=== PATIENT | female | born 1945 | race Caucasian/White ===

== ENCOUNTER 2025-02-21 13:07 | Emergency (ER) | payer MEDICARE, SELFPAY ==
--- NOTE | ~2025-02-21 | CT_ITS ---
CLINICAL HISTORY: LLQ pain, incontinent of stool constipation --- Additional Notes or Special Instructions: PT NEEDS RESTROOM 1ST@1614 CT abdomen and pelvis with contrast Comparison: None provided Findings: No consolidation or pleural effusion. Minimal lateral left basilar subsegmental atelectasis versus scarring. The gallbladder is distended. No definite gallstones. No biliary ductal dilatation. The liver, spleen and pancreas are unremarkable. Unremarkable right adrenal. Thickening of left adrenal. Right kidneys unremarkable. There is a 2.4 cm cyst of the upper pole of the left kidney and an additional 1 cm hypodense round lesion in the upper pole which is too small to be fully characterized. There is decreased enhancement in the left kidney compared with the right with mild hydronephrosis and hydroureter with a 3-4 mm stone at the left ureterovesical junction. There is a 6 mm nonobstructing stone in the lower pole of the left kidney. No right ureteral stone and no right hydronephrosis or hydroureter. No bowel obstruction, pneumoperitoneum, or pneumatosis. Sigmoid colon diverticulosis. Moderate stool in the ascending and transverse colon. Prominent rectal stool with rectal wall thickening and perirectal fat stranding may represent rectal fecal impaction and stercoral proctitis. No free fluid. No loculated fluid collection. Urinary bladder within normal limits. Uterus is absent. Appendix not visualized with no pericecal inflammatory changes. Atherosclerotic vascular disease with no aneurysm of the abdominal aorta. No acute fracture. Diffuse demineralization with multilevel degenerative changes in the spine. Degenerative changes right hip. Previous left hip arthroplasty. IMPRESSION: 1. Prominent rectal stool with rectal distention, rectal wall thickening and perirectal fat stranding suggestive of fecal impaction/constipation and stercoral proctitis. Correlate clinically. 2. 3-4 mm stone at the left ureterovesical junction with mild left hydronephrosis and hydroureter. 3. Additional nonacute findings as described. This document has been electronically signed by: Rachel Diana MD on 02/21/2025 18:12:26
--- NOTE | 2025-02-21 13:38 | ED.ABDPAIN ---
HPI - Abdominal Pain General Chief Complaint: Abdominal Pain Stated Complaint: abd pain Time Seen by Provider: 02/21/25 14:25 Source: patient, RN notes reviewed and old records reviewed Mode of arrival: ambulatory Limitations: no limitations History of Present Illness ED Provider: Frances HPI narrative: Patient is a 79-year-old female with history of hysterectomy presenting to the emergency department with complaint of left lower quadrant abdominal pain which he describes as intermittently cramping. States that on Tuesday she developed nausea and vomiting, felt as though she was going to have diarrhea but did not. Reports that these symptoms continued through Tuesday. On Tuesday she developed the abdominal pain as well as constipation. Reports last normal bowel movement was on the prior to onset of her nausea and vomiting. States that on Tuesday she did take docusate, Dulcolax, and MiraLax. She then reports some fecal incontinence. Denies any fevers. Denies any hematochezia or melena. Reports that her emesis was nonbloody, nonbilious. She reports feeling as though she has a fecal impaction in her rectum, also questioning a rectal prolapse. MD elicited complaint: abdominal pain Related Data Previous Rx's ?Medication ?Instructions ?Recorded nitrofurantoin 100 mg PO Q12H 5 days #10 caps 02/21/25 monohydrate/macrocrystals 100 mg capsule (Macrobid) ondansetron 4 mg disintegrating 4 mg PO Q8H PRN nausea and 02/21/25 tablet vomiting #14 tabs tamsulosin 0.4 mg capsule 0.4 mg PO DAILY 14 days #14 caps 02/21/25 Allergies Allergy/AdvReac Type Severity Reaction Status Date / Time gentamicin Allergy Diarrhea Verified 02/21/25 13:43 meperidine (From Demerol) Allergy Vomiting Verified 02/21/25 13:43 metoclopramide (From Reglan) Allergy Unknown Verified 02/21/25 13:43 metronidazole (From Flagyl) Allergy Diarrhea Verified 02/21/25 13:43 Milk Containing Products Allergy Vomiting Verified 02/21/25 13:43 (Dairy) Review of Systems Review of Systems As per HPI Yes all other systems are reviewed and are negative Constitutional: Reports as per HPI PMFSH Social History Social History Smoked in Last 30 Days: No Use of substances other than those prescribed or required for medical reasons: No Advance Directives: Yes Advance Directives Information Provided: No Advance Directives on File: No Physical Exam ED Vital Signs: Vital Signs - 24 hr 02/21/25 13:41 02/21/25 15:32 02/21/25 15:39 Temperature 98.5 F 98.7 F Pulse Rate 94 91 Respiratory Rate 18 18 18 Blood Pressure 160/70 H 160/67 H Pulse Oximetry 95 99 Oxygen Delivery Method Room Air Room Air 02/21/25 17:43 02/21/25 20:03 Temperature 99 F Pulse Rate 85 88 Respiratory Rate 16 16 Blood Pressure 145/38 H 165/52 H Pulse Oximetry 95 96 Oxygen Delivery Method Room Air Room Air BMI result Body Mass Index 31.6 Vital signs have been reviewed and appear to be correct. Blood pressure normal. Heart rate normal. Respiratory rate normal. Temperature normal. Oxygen saturation normal. Const General: cooperative, healthy appearing and no acute distress Orientation/consciousness: oriented to person, oriented to place, oriented to time and patient oriented x3 Limitations: no limitations HENMT Head: Yes normocephalic and Yes atraumatic Ears: external ears normal General nose exam: Normal external nose present Face and sinus: Yes face symmetric Mouth: oropharynx normal and moist mucous membranes Throat: Yes uvula midline Eyes Pupils: Equal, round and reactive pupils present Neck Neck: Yes normal visual inspection and Yes supple Resp Effort & Inspection: normal respiratory effort and able to speak in complete sentences Auscultation: clear to auscultation bilaterally Cardio Rate: regular rate Rhythm: regular rhythm Heart sounds: S1 normal heart sound present and S2 normal heart sound present GI Other: rectal exam chaperoned by Axel RN Palpation (GI): Soft to palpation, Tenderness to palpation present (GI) in the LLQ, no guarding and No Rebound tenderness present Auscultation: normoactive bowel sounds Rectal Exam - Female: visual inspection normal, No External hemorrhoid(s) present and No Rectal prolapse General: Yes no CVA tenderness Back/Spine/Pelvis Back: no CVA tenderness Skin General skin exam: elasticity normal and turgor normal Neuro General: oriented to person, oriented to place, oriented to time, patient oriented x3, moves all extremities, no focal motor deficits and CN's II-XI intact bilaterally Cranial nerves: Yes Equal, round and reactive pupils present Cognition (Neuro): normal cognition Extrem General: Yes full ROM, Yes no pedal edema and Yes no calf tenderness Psych Mental Status: mental status grossly normal Affect: normal affect Thought process: Normal thought process present Course Course Course Narrative: This is an RME: Additional HPI, ROS, PE not included below will be deferred to primary provider. RME assessment and note performed by: Chantel Garcia PA-C This is a 18-efst-kyz-female, with a hx of HTN, CAD, HLD, GERD, arthritis, forestier's disease (DISH), who presents to the ER with a complaint of abdominal pain since last night.Reports that she had a stomach virus last week and then has felt as though. STill passing gas. No BM in over 1 week. Pt appears uncomfortable, advised charge nurse to bring pt back sooner rather than later. Plan: Labs, KUB xray, further ER eval needed 4:54 PM 02/21/2025 (Angeles Santana NP): Patient signed out to me from previous provider. Pending CT abdomen/pelvis to r/o diverticulitis. 6:18 PM: Her CT scan reveals prominent rectal stool rectal distention, rectal wall thickening and perirectal fat stranding suggestive of fecal impaction or constipation, as well as stercoral proctitis. Per the previous provider, there was no fecal impaction on exam. Patient would like repeat exam because she does feel something is stuck. Will order fleet enema and reassess. There is also evidence of a 3-4 mm stone at the left UVJ with mild left hydronephrosis and hydroureter. She has mild leukocytosis to 13.7, and urinalysis does show small leuks, but no bacteria. There is large blood, which correlates. Creatinine 0.94, BUN at 23. I have added on empiric treatment with 1 g of Rocephin. 9:55 PM: After several disimpaction attempts, the patient was able to have a bowel movement in the bathroom after placing her feet on elevated surface. She was not able to show me the stool but reports she had for stool balls. She reports significant improvement. Upon my reassessment she is wearing all of her clothing, and reports significant improvement, and is requesting to go home. She will need follow up with Urology outpatient. I will prescribe a short course of antibiotics pending urine culture. She is agreeable to plan of care. Provided return precautions to the ED. Medical Decision Making Medical Decision Making [facility] Narrative: Patient is a 79-year-old female with history of hysterectomy presenting to the emergency department with complaint of left lower quadrant abdominal pain which he describes as intermittently cramping. On exam patient is awake, A+Ox3, VS WNL, afebrile, normal neurological exam without focal deficits, physical exam findings as above. Given reported symptoms and physical exam findings, initial differential includes but is not limited to gastroenteritis, diverticulitis, constipation. Labs notable for leukocytosis with left shift, no significant electrolyte abnormalities. Patient denies any relief of pain from morphine and is specifically requesting Toradol. Patient signed out to MEGHAN Reynoso pending CT results. Differential Diagnosis Differential Diagnoses: The differential diagnosis associated with the presentation includes as per [facility] Admission/Observation Consideration of admission/observation: Escalation of care including admission/observation considered Lab Data [facility] Lab Attestation statement: I reviewed the patient's lab results. as per [facility] 02/21/25 15:07 02/21/25 15:07 Labs: Lab Results 02/21/25 02/21/25 Range/Units 15:07 15:24 WBC 13.7 H (4.8-10.8) X10*3/uL RBC 3.79 L (4.20-5.50) X10*6/uL Hgb 11.9 L (12.0-16.0) g/dl Hct 34.9 L (37.0-47.0) % MCV 92.1 (80.0-98.0) fL MCH 31.4 (27.0-33.0) pg MCHC 34.1 (31.0-35.0) g/dl RDW 12.4 (11.0-16.0) % Plt Count 143 L (160-400) X10*3/uL MPV 8.9 L (9.4-12.3) fL Immature Gran % (Auto) 0.4 (0.0-0.4) % Neut % (Auto) 82.8 H (45-73) % Lymph % (Auto) 9.4 L (20-40) % [place] % (Auto) 7.0 (2-11) % Eos % (Auto) 0.2 (0-4) % Baso % (Auto) 0.2 (0-2) % Lymph # (Auto) 1.3 (1.2-4.9) X10*3/uL [place] # (Auto) 1.0 (0.1-1.2) X10*3/uL Eos # (Auto) 0.0 (0.0-0.4) X10*3/uL Baso # (Auto) 0.0 (0.0-0.2) X10*3/uL Abs Immat Gran (auto) 0.06 H (0.00-0.03) X10*3/uL Absolute Neuts (auto) 11.3 H (2.0-8.3) x10*3/uL Absolute Nucleated RBC 0.000 (0.0-0.012) X10*3/uL Nucleated RBC % (auto) 0.0 (0.0-0.2) /100WBC Sodium 135 (135-145) mmol/L Potassium 3.7 (3.3-5.1) mmol/L Chloride 104 (96-108) mmol/L Carbon Dioxide 22 (22-29) mmol/L Anion Gap 13 (12-20) BUN 23 H (9-16) mg/dL Creatinine 0.94 (0.5-1.4) mg/dL Estim Creat Clear Calc 47.0 Estimated GFR 57 Random Glucose 119 H (60-115) mg/dL Calcium 8.8 (8.4-10.2) mg/dL Magnesium 2.0 (1.6-2.6) mg/dL Total Bilirubin 0.6 (0.0-1.0) mg/dL Direct Bilirubin 0.2 (0.0-0.5) mg/dL AST 24 (5-31) U/L ALT 15 (0-31) U/L Alkaline Phosphatase 99 (39-117) U/L Troponin I High Sens 4.9 (<3.5-17.0) ng/L Total Protein 6.9 (6.5-8.0) g/dL Albumin 4.1 (3.5-5.0) g/dL Lipase 9 (8-78) U/L Urine Color Yellow Urine Appearance Cloudy Urine pH 5.5 (5.0-9.0) Ur Specific [place] 1.020 (1.005-1.025) Urine Protein 30 (1+) H (Neg-Trace) mg/dL Urine Glucose (UA) Negative (Negative) mg/dL Urine Ketones Trace (Negative) mg/dL Urine Blood Large (3+) H (Negative) Urine Nitrite Negative (Negative) Ur Leukocyte Esterase Small (1+) H (Negative) Urine RBC >20 H (0-2) /HPF Urine WBC 0-5 (0-5) /HPF Ur Squamous Epith Cells 0-2 (0-2) /HPF Urine Bacteria None Seen (None Seen) Hyaline Casts 6-10 (0-2) /LPF External Record Review External record reviewed: Inpatient record, Office record and Outpatient record Medications Administered Discontinued Medications Generic Name Dose Route Start Last Admin Trade Name Freq PRN Reason Stop Dose Admin Acetaminophen 975 mg 02/21/25 19:29 02/21/25 19:49 Acetaminophen 325 Mg Tablet PO 02/21/25 19:30 975 mg ONCE ONE Administration Lactated Ringer's 1,000 mls @ 999 mls/hr 02/21/25 14:45 02/21/25 17:42 Lr IV 02/21/25 15:45 Infused .Q1H1M DEMETRIS Infusion Ceftriaxone Sodium 1 gm/ 50 mls @ 100 mls/hr 02/21/25 18:41 02/21/25 19:44 Sodium Chloride IV 02/21/25 19:10 Infused ONCE ONE Infusion Iohexol 100 ml 02/21/25 16:50 02/21/25 16:59 Iohexol 350 Mg/Ml 100 Ml Infus..Btl IV 02/21/25 16:51 85 ml ONCE ONE Administration Ketorolac Tromethamine 15 mg 02/21/25 16:05 02/21/25 16:36 Ketorolac Tromethamine 15 Mg/Ml Vial IVPUSH 02/21/25 16:06 15 mg ONCE ONE Administration Lidocaine HCl 10 ml 02/21/25 19:29 02/21/25 19:49 Lidocaine Hcl 2 % Urojet 10 Ml Jel.Pf.Nona TOPICAL 02/21/25 19:30 10 ml ONCE ONE Administration Morphine Sulfate 4 mg 02/21/25 14:42 02/21/25 15:32 Morphine Sulfate 4 Mg/Ml Cartridge IVPUSH 02/21/25 14:43 4 mg ONCE ONE Administration Protocol Sodium Biphosphate/Sodium Phosphate 133 ml 02/21/25 18:45 02/21/25 19:14 Sodium Phosphate,[place]-Dibasic 133 Ml Enema OR 02/21/25 18:46 133 ml ONCE ONE Administration Discharge Plan Discharge Clinical Impression: Fecal impaction, Calculus of ureterovesical junction (UVJ) Hydronephrosis Qualifiers: Hydronephrosis type: unspecified Qualified Code(s): N13.30 - Unspecified hydronephrosis Patient Disposition: Home, Self-Care Instructions: Fecal Impaction (ED), Ureteral Stones (ED) Additional Instructions: As we discussed, your CT scan showed evidence of a fecal impaction. You reportedly were able to have several bowel movements in the ER bathroom during your stay. If you develop any worsening abdominal pain and are unable to have a bowel movement, please return to the ED. Additionally, your CT also showed a 3-4 mm stone at the left UVJ with mild left hydronephrosis and hydroureter, meaning kidney swelling. It is very important that you follow up with Urology outpatient. I have also them as a referral below for your convenience. Additionally, the urine sample showed large blood, only mild bacteria, but we gave you a dose of IV antibiotics while in the ED. I have also prescribed you a short course of oral antibiotics, as well as Flomax. Please take these medications as prescribed. With any worsening complaints at any time, return back to the ED for further assessment Prescriptions: New ondansetron 4 mg tablet,disintegrating 4 mg PO Q8H PRN (Reason: nausea and vomiting) Qty: 14 0RF nitrofurantoin monohyd/m-cryst [Macrobid] 100 mg capsule 100 mg PO Q12H 5 Days Qty: 10 0RF Rx Instructions: must administer with a meal/food tamsulosin 0.4 mg capsule 0.4 mg PO DAILY 14 Days Qty: 14 0RF Referrals: Georgia Lopez FNP [Primary Care Provider, Family Practice] [facility] [place] [facility] [Provider Group, Urology] Print Language: Mongolian
[2025-02-21 13:41] VITALS: BP 160/70; PULSE 94; RESP 18; TEMP 36.9; O2SAT 95; BMI 31.6
[2025-02-21 15:14] LABS: MANUAL DIFF FLAG NO
[2025-02-21 15:20] LABS: Hematocrit 34.9 % (37.0-47.0); Hemoglobin 11.9 g/dl (12.0-16.0); Imm Gran Abs Auto 0.06 X10*3/uL (0.00-0.03); Imm Gran Pct Auto 0.4 % (0.0-0.4); Lymphocytes Absolute Auto 1.3 X10*3/uL (1.2-4.9); Mean Corpuscular HGB Conc 34.1 g/dl (31.0-35.0); Mean Corpuscular Hemoglobin 31.4 pg (27.0-33.0); Mean Corpuscular Volume 92.1 fL (80.0-98.0); NRBC Abs Auto 0.000 X10*3/uL (0.0-0.012); NRBC Pct Auto 0.0 /100WBC (0.0-0.2); Platelet Count 143 X10*3/uL (160-400); Red Blood Count 3.79 X10*6/uL (4.20-5.50); White Blood Count 13.7 X10*3/uL (4.8-10.8)
[2025-02-21 15:32] VITALS: RESP 18
[2025-02-21] MEDS: Lactated Ringers 1,000 ML 999 ML IV (15:33)
[2025-02-21 15:34] LABS: Alanine Aminotransferase 15 U/L (0-31); Albumin Level 4.1 g/dL (3.5-5.0); Alkaline Phosphatase 99 U/L (39-117); Anion Gap 13 (12-20); Aspartate Amino Transferase 24 U/L (5-31); Blood Urea Nitrogen 23 mg/dL (9-16); Calcium 8.8 mg/dL (8.4-10.2); Carbon Dioxide 22 mmol/L (22-29); Chloride 104 mmol/L (96-108); Creatinine Clr Calc Pharmacy 47.0; Estimated Glomerular Filt Rate 57; Lipase 9 U/L (8-78); Magnesium 2.0 mg/dL (1.6-2.6); Potassium 3.7 mmol/L (3.3-5.1); Sodium 135 mmol/L (135-145); Total Protein 6.9 g/dL (6.5-8.0)
[2025-02-21 15:35] LABS: Troponin-I High Sensitivity 4.9 ng/L (<3.5-17.0)
[2025-02-21 15:39] VITALS: BP 160/67; PULSE 91; RESP 18; TEMP 37.1; O2SAT 99
[2025-02-21 15:53] LABS: Appearance Urine Cloudy; Glucose Urine UA Negative (Negative); PH 5.5 (5.0-9.0); Specific Gravity - Urine 1.020 (1.005-1.025); UMIC TRIGGER UACC YES
[2025-02-21 16:17] LABS: UACC Culture Trigger YES
[2025-02-21] MEDS: iohexoL 350 MG/ML 100 ML INFUS..BTL IV (16:59)
[2025-02-21 17:43] VITALS: BP 145/38; PULSE 85; RESP 16; O2SAT 95
--- NOTE | 2025-02-21 19:18 | PC.NURSE ---
this rn assumed care of pt, Sole Layer Hand at bedside administering enema and doing rectal exam at this time. antibiotics being administered
--- NOTE | 2025-02-21 19:36 | PC.NURSE ---
per MECHANICAL MAINTENANCE ENGINEER Esther, no need for cultures prior to antibiotic administration
[2025-02-21] MEDS: Lidocaine HCl 2 % Urojet 10 ML JEL.PF.APP TOPICAL (19:49)
[2025-02-21 20:03] VITALS: BP 165/52; PULSE 88; RESP 16; TEMP 37.2; O2SAT 96
--- OUTSIDE RECORDS SUMMARY | 2025-02-21 22:08 | XMS_ITS | Encounter Summary ---
Author Organization [facility] Address [address] [place] [address] Phone Care Team Providers Care Manufacturing Maintenance Technician Name Role Phone Surinder Frye MD Primary Care Provider [phone] Alison Warner MD Unavailable [phone] Roshan Terry MD Unavailable [phone] Surinder Frye MD Unavailable [phone] Georgia Lopez NP Primary Care Provider Encounter Details Date Type Department Care Team (Late st Contact Info) Description 08/11/2021 Procedure Pass Echo [facility] [place] [address] Social History Tobacco Use Types Packs/Day Years Used Date Smoking Tobacco: Former Cigarettes Smokeless Tobacco: Never Alcohol Use Standard Drinks/Week Comments Not Currently 0 (1 standard drink = 0.6 oz pur e alcohol) rarely Comments Unknown Sex and Gender Information Value Date Recorded Sex Assigned at Not on file Legal Sex Female 10:37 PM EDT Gender Identity Not on file Sexual Orientation Not on file Occupation Industry Job Start Date Job End Date RN Not on file Not on file Not on file documented as of this encounter Plan of Treatment Upcoming Encounters Date Type Department Care Team (Late st Contact Info) Description 04/29/2025 12:40 PM EST Office Visit [facility] [address], [address] [place], [place] [id number] David Avery MD [address] [facility], [address] [place] [address] [email or web address] documented as of this encounter Visit Diagnoses Not on filedocumented in this encounter Additional Health Concerns Infection Onset Date Last Indicated Resolved Time CoV-Presumed 07/29/2021 07/29/2021 2021 1:22 AM EDT CoV-Exposed Comment:Recent close contact documented in the COVID-19 PCR/PRO order 07/31/2021 07/31/2021 08/11/2021 1:23 AM E DT CoV-Presumed 11/23/2021 11/23/2021 12/14/2021 1:21 AM EDT Assessment Noted Time PHQ-2 Depression Total Score: 0 03/17/19 23 9:46 AM EST documented as of this encounter Care Teams Manufacturing Maintenance Technician Relationship Specialty Start Date End Date Surinder Frye MD [address] [place] [address], [address] [place] [address] [email or web address] PCP - General Internal Medicine 05/08/18 07/07/23 Georgia Lopez NP [address] [place] [id number] PCP - General Nurse Practitioner 07/08/23 Alison Warner MD [address] [address] Gastroenterology 05/08/18 Roshan Terry MD [address] [address] [email or web address] Cardiology 05/08/18 Surinder Frye MD [address] [place] [address], [address] [place] [address] [email or web address] Insurance Assigned Provider 06/18/23 03/19/24 documented as of this encounter Additional Source Comments The information contained in this document represents components of the legal health record. It is not the complete legal health record.[facility]
--- OUTSIDE RECORDS SUMMARY | 2025-02-21 22:09 | XMS_ITS | Clinical Summary ---
Author Organization [facility] Address [address] [place] [address] Phone Care Team Providers Care Human Anatomy Teacher Name Role Phone Georgia Lopez NP Primary Care Provider [phone] Encounters Date Type Department Care Team Description 01/24/2025 9:00 AM EST - 01/24/2025 11:59 PM EST Hospital Encounter [facility] at [address] [address] Encounter for screening mammogram for breast cancer Discharge Disposition: Home or Self Care from Last 3 Months Family History Medical History Relation Name Comments Breast cancer Mother's Sister Relation Name Status Comments Mother's Sister Alive Social History Tobacco Use Types Packs/Day Years Used Date Smoking Tobacco: Never Assessed Comments No Sex and Gender Information Value Date Recorded Sex Assigned at Not on file Legal Sex Female 7:17 PM EST Gender Identity Not on file Sexual Orientation Not on file Obstetrics History Para Term AB IAB SAB Ectopic Multiple Livin g Live Births 2 Last Filed Vital Signs Vital Sign Reading Time Taken Comments Blood Pressure - - Pulse - - Temperature - - Respiratory Rate - - Oxygen Saturation - - Inhaled Oxygen Concentration - - Weight 77.1 kg (170 lb) 01/21/2024 9:34 AM EST Height 156.2 cm (5' 1.5 ) 01/21/2024 9:34 AM EST Body Mass Index 31.6 01/21/2024 9:34 AM EST Plan of Treatment Health Maintenance Due Date Last Done Comments Hepatitis A Vaccines (1 of 2 - Risk 2-dose series) 1964 Zoster Vaccines (1 of 2) 08/20/1995 Hepatitis B Vaccines (1 of 3 - Risk 3-dose series) 2005 RSV Immunization Adult Patients (1 - 1-dose 75+ series) 2020 Falls Risk Assessment 02/13/2022 Medicare Annual Wellness Visit 02/13/2022 Social Influencers of Health Screening 02/13/2022 Hypertension/CHF/CAD Annual BMP Blood Test 01/21/2024 08/18/2022, 04/07/2022, 05/01/2019 Depression Screening 03/14/2024 COVID-19 Vaccine ( season) 2024 03/26/2022, 01/23/2021, 06/11/2020, Additional history exists Influenza Vaccine (#1) 2024 Cholesterol Screening (Lipid Panel) 07/24/2028 07/25/2023 Osteoporosis Screening (Bone Density Screening) 07/26/2032 07/26/2022 DTaP,Tdap,and Td Vaccines (2 - Td or Tdap) 10/14/2032 10/14/2022 Pneumococcal Vaccine: 50+ Years Completed 03/21/2018, 03/21/2016 Hepatitis C Screening Completed 01/22/2019 HIB Vaccines Aged Out No longer eligi ble based on patient's age to complete this topic HPV Vaccines Aged Out No longer eligi ble based on patient's age to complete this topic IPV Vaccines Aged Out No longer eligi ble based on patient's age to complete this topic MMR Vaccines Aged Out No longer eligi ble based on patient's age to complete this topic Meningococcal ACWY Vaccine Aged Out N o longer eligible based on patient's age to complete this topic Meningococcal B Vaccine Aged Out No l onger eligible based on patient's age to complete this topic RSV Immunization Patients Under 20 months Aged Out No longer eligible based on patient's age to complete this topic Varicella Vaccines Aged Out No longer eligible based on patient's age to complete this topic Procedures Procedure Name Priority Date/Time Associated Diagnosis Comments MG MAMMO DIGITAL SCREENING W APPLE BILAT Routine 01/24/2025 9:22 AM EST Encounter for screening mammogram for breast cancer from Last 3 Months Results * MG Mammo Digital Screening w Apple bilat (01/24/2025 9:22 AM EST) Anatomical Region Laterality Modality Breast Bilateral Mammography 01/24/2025 9:34 AM EST Impressions 01/24/2025 11:59 AM EST No mammographic evidence of malignancy. No suspicious interval change. A negative mammogram in the presence of a clinically suspicious palpable abnormality does not preclude the possibility of malignancy or alter the indications for biopsy. ASSESSMENT: BI-RADS 2: BENIGN RECOMMENDATION(S): 1: Routine screening mammogram BILATERAL in 1 year. [facility] location[facility] at [address], [address] -------- FINAL REPORT -------- Dictated By: Shan Rodriguez Dictated Date: 01/24/2025 09:34 ET Assigned Physician: Shan Rodriguez Reviewed and Electronically Signed By: Shan Rodriguez Signed Date: 01/24/2025 11:59 ET Workstation ID: [id number] Transcribed By: Self Edit Transcribed Date: 01/24/2025 09:50 ET Narrative 01/24/2025 11:59 AM EST EXAM: SCREENING MAMMOGRAPHY, BILATERAL HISTORY: SCREENING. Maternal aunt with history of breast cancer. COMPARISON: 01/21/24, 01/17/23, 01/15/22, 01/07/21 TECHNIQUE: Synthesized CC and MLO projections of each breast. Tomosynthesis of each breast in the CC and MLO projections. ADDITIONAL IMAGING: None Computer-aided detection was employed with the [employer] Sling AI 3-D. TISSUE DENSITY: The breasts are heterogeneously dense, which may obscure small masses. (BI-RADS category C) FINDINGS: There are large mayuri calcifications bilaterally. No suspicious interval change. RIGHT BREAST: No suspicious mass. No new suspicious calcification. No distortion. No additional suspicious right breast findings LEFT BREAST: No suspicious mass. No new suspicious calcification. No distortion. No additional suspicious left breast findings Procedure Note Shan Rodriguez MD - 01/24/2025 EXAM: SCREENING MAMMOGRAPHY, BILATERAL HISTORY: SCREENING. Maternal aunt with history of breast cancer. COMPARISON: 01/21/24, 01/17/23, 01/15/22, 01/07/21 TECHNIQUE: Synthesized CC and MLO projections of each breast.Tomosynthesis of each breast in the CC and MLO projections. ADDITIONAL IMAGING: None Computer-aided detection was employed with the iCAD ProFound AI 3-D. TISSUE DENSITY: The breasts are heterogeneously dense, which may obscuresmall masses. (BI-RADS category C) FINDINGS: There are large mayuri calcifications bilaterally. No suspicious intervalchange. RIGHT BREAST: No suspicious mass. No new suspicious calcification. No distortion. Noadditional suspicious right breast findings LEFT BREAST: No suspicious mass. No new suspicious calcification. No distortion. Noadditional suspicious left breast findings IMPRESSION: No mammographic evidence of malignancy. No suspicious interval change. A negative mammogram in the presence of a clinically suspicious palpableabnormality does not preclude the possibility of malignancy or alter theindications for biopsy. ASSESSMENT: BI-RADS 2: BENIGN RECOMMENDATION(S): 1: Routine screening mammogram BILATERAL in 1 year. [facility] location[facility] at [address], [address] -------- FINAL REPORT -------- Dictated By: Shan Rodriguez Dictated Date: 01/24/2025 09:34 ET Assigned Physician: Shan Rodriguez Reviewed and Electronically Signed By: Shan Rodriguez Signed Date: 01/24/2025 11:59 ET Workstation ID: [id number] Transcribed By: Self Edit Transcribed Date: 01/24/2025 09:50 ET us Self Referral Sppl IMG BI PROCEDURES Final Resul t from Last 3 Months Insurance MEDICARE [facility] Advance Directives Documents on File Type Date Recorded Patient Layer Out Expl anation Health Care Decision (hx) 04/05/2023 AD MURPHY DIRECTIVE Health Care Decision (hx) 03/30/2023 HE ALTH CARE PROXY Health Care Decision (hx) 05/05/2015 AD MURPHY DIRECTIVE Health Care Decision (hx) 05/05/2015 AD MURPHY DIRECTIVE Health Care Decision (hx) 05/05/2015 AD MURPHY DIRECTIVE Health Care Decision (hx) 05/05/2015 AD MURPHY DIRECTIVE Health Care Decision (hx) 05/05/2015 AD MURPHY DIRECTIVE Health Care Decision (hx) 05/05/2015 AD MURPHY DIRECTIVE Health Care Decision (hx) 05/05/2015 AD MURPHY DIRECTIVE Health Care Decision (hx) 05/05/2015 AD MURPHY DIRECTIVE Health Care Decision (hx) 05/05/2015 AD MURPHY DIRECTIVE Care Teams Human Anatomy Teacher Relationship Specialty Start Date End Date Georgia Lopez NP [address] [address] PCP - General Family Medicine 01/24/25
--- OUTSIDE RECORDS SUMMARY | 2025-02-21 22:09 | XMS_ITS | Patient Health Record ---
Author Organization [facility] Address [address] [place] [address] Care Team Providers Care Environmental Department Manager Name Role Phone MESHA WALSH Primary Care Provider Unavaila Mera [place] Unavailable [phone] Allergies Allergen (clinical drug ingredient) Drug/Non Drug Allergy documented on EMR Reaction Allergy Type Onset Date Status meperidine Demerol Vomiting Drug Allergy Active metronidazole Flagyl Unknown Drug Allergy Act anish metoclopramide Reglan Sherron Drug Allergy Ac tive Reason For Referral No Information Medications Medication SIG (Take, Route, Frequency, Duration) Notes Start Date End Date Status Ursodiol 500 MG as directed Orally O nce a day Active Rosuvastatin Calcium 5 MG 1 tablet Orally Once a day Active Aspirin 81 81 MG as directed Orally o nce a day Active Lisinopril 5 MG 1 tablet Orally Once a day Active Social History Tobacco Use: Social History Observation Description Date Details (start date - stop date) Former Smoker NA - NA Tobacco Use/Smoking Question Answer Notes Are you a former smoker How long has it been since you last smoked? > 10 years Alcohol Screen (Audit-C) Question Answer Notes Did you have a drink containing alcohol in the p ast year? No Points 0 Interpretation Negative Sexual History Question Answer Notes Had sex in the past 12 months (vaginal, oral, or anal)? Yes with Men only Tobacco use other than smoking: Question Answer Notes Are you an other tobacco user? 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) Rectocele (N81.6) Active confirmed Problem Cystocele (110076097) Cystocele, unspecified (N81.10) Active confirmed Plan Of Treatment No Information Insurance Providers Payer Name Payer Address Payer Phone Subscriber Number Group Number Insured Name Patient Relationship to Insured Coverage Start Date Coverage End Date MEDICARE [address] [place]Y [place] [id number] JOSLYN DANIELLE Self - patient is the insured [employer] OF [facility] [address] [place] [phone] [id number] JOSLYN DANIELLE Self - patient is the insured Medical (General) History Medical History History ICD Code 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
--- OUTSIDE RECORDS SUMMARY | 2025-02-21 22:09 | XMS_ITS | Encounter Summary ---
Author Organization [facility] Address [address] [place] [address] Care Team Providers Care Associate Professor Of Criminal Justice Name Role Phone Georgia Lopez NP Primary Care Provider [phone] Encounter Details Date Type Department Care Team (Late st Contact Info) Description 05/08/2024 Lab Requisition [facility] - Main Lab [address] [facility] [place] [address] Shawn Dueñas MD [address] [place] [address] Gross hematuria Social History Tobacco Use Types Packs/Day Years Used Date Smoking Tobacco: Never Assessed Comments No Sex and Gender Information Value Date Recorded Sex Assigned at Not on file Legal Sex Female 7:17 PM EST Gender Identity Not on file Sexual Orientation Not on file documented as of this encounter Plan of Treatment Not on file documented as of this encounter Procedures Procedure Name Priority Date/Time Associated Diagnosis Comments AP OUTSIDE CONSULT Routine 05/03/2024 12 :00 AM EST Gross hematuria documented in this encounter Results * Anatomic pathology outside consult (05/03/2024 12:00 AM EST) Final Diagnosis A. Urine, Voided, ([id number]): Negative for high grade urothelial carcinoma. Results of UroV[employer]ion fluorescence in situ hybridization (FISH) testing: CEP3: Normal CEP7: Normal CEP17: Normal LSI 9p21: Normal Interpretation: Normal profile Controls stained appropriately. Note: The results are intended as a screening device and should be interpreted in association with other clinical and pathological findings. 05/22/2024 5:11 PM EDT [facility] at [address] EDT Clinical Information Gross hematuria R31.0 Urine Cytology/FISH (now) 05/22/2024 5:11 PM EDT [facility] Gross Description A. Urine, Voided, ([id number]): Received one ThinPrep slide for cytology and one ThinPrep slide for UroVysion FISH 05/22/2024 5:11 PM EDT [facility] Disclaimer Unless otherwise specified, all tissue is 10% NB formalin fixed and paraffin embedded. Technical pathology services provided by [facility] at [address], [place] [address] (CLIA #[id number]/Faustina Aparicio MD, Machine I Coremaker) 05/22/2024 5:11 PM EDT [facility] Tissue Urine specimen from urethra / Unknown 05/03/2024 05/08/2024 3:09 PM EST us Shawn Dueñas MD LAB PATHOLOGY ORDERAB LES Final Result [facility] [address] [place] [address], documented in this encounter Visit Diagnoses Diagnosis Gross hematuria documented in this encounter Care Teams Associate Professor Of Criminal Justice Relationship Specialty Start Date End Date Georgia Lopez NP [address] [place] [address] PCP - General Family Medicine 01/24/25 documented as of this encounter
--- OUTSIDE RECORDS SUMMARY | 2025-02-21 22:09 | XMS_ITS | Clinical Summary ---
Author Organization [facility] Address [address] [place] [address] Phone Support Name Relationship Address Phone Ortega Davis Personal Relationship [address] [place] [address] Kendrick Davis Personal Relationship 24 03/15 [place] [address] Care Team Providers Care Line Controller Name Role Phone Alison Warner MD Unavailable [phone] Roshan Terry MD Unavailable [phone] Georgia Lopez NP Primary Care Provider [phone] Allergies Active Allergy Reactions Criticality Noted Date Comments Clindamycin Hcl Other (See Comments) 07/02/2016 CDiff Influenza Virus Vaccines Other (See Comments) 05/08/2018 Encephalitis per pt report Meperidine Nausea and/or Vomiting 07/02/2016 Metronidazole Other (See Comments) 07/02/2016 CDiff Niacin Other (See Comments) 07/02/2016 Red man syndrome Metoclopramide Hcl Other (See Comments) 07/02/2016 Made pt hyper Dfiepbw-Bzq-Rfe Reductase Inhibitors Other (See Comments) 05/08/2018 Muscle aches/joint pain Medications MULTIVITAMIN ORAL Take 1 tablet by mouth daily. Active pantoprazole (PROTONIX) 40 MG tablet Take 40 mg by mouth as needed. 04/30/2021 Active ascorbic acid, vitamin C, (VITAMIN C) 500 MG tablet Take 500 mg by mouth daily. Active polyethylene glycol (MIRALAX) 17 gram/dose powder Take 17 g by mouth as needed. Active aspirin 81 MG EC tablet Take 81 mg by mouth daily. Active rosuvastatin (CRESTOR) 5 MG tablet TAKE ONE TABLET BY MOUTH THREE TIMES A WEEK. ON TUESDAY, TUESDAY, AND TUESDAY. 90 tablet 3 07/23/2024 Active celecoxib (CELEBREX) 200 MG capsule Take 1 capsule by mouth every morning. 09/13/2024 Active Active Problems Problem Noted Date Diagnosed Date Closed fracture of multiple ribs of left side with routine healing 04/06/2023 Overview (04/06/2023): March 2023, slightly displaced fractures of the left seventh and eighth ribs and the 10th rib Assessment & Plan (04/06/2023 12:37 PM EST): She still having significant amount of pain from her rib fracture, but this soon after injury is not unusual. She may have exacerbated her situation accidentally when turning over in bed. I am hopeful she will see some significant improvement in her pain in the next week or 2. She can continue her current pain regimen. She should try and minimize her dose of hydromorphone and hopefully she will need it for more than another 1 to 2 weeks. Labile blood pressure 11/17/2022 Assessment & Plan (12/03/2022 12:44 PM EDT): As mentioned above I suspect this is related to sleep apnea. Blood pressure is elevated, but on many days it is quite normal around 120/70. At this point I am reluctant to start her on any medication until we have a better idea of what is going on with sleep as the high blood pressures may resolve with treatment if indeed she has sleep apnea. Assessment & Plan (11/17/2022 2:33 PM EDT): Cleopatra had elevated blood pressure readings several days ago on both manual and automatic cuff. They normalized at home and are normal in the office today and actually a bit lower than her last two office readings (with PCP and cardiology). She inquires about a medication to use as needed for elevated blood pressure since she has been intolerant of a daily medication. I asked her to check her BP daily over the next 2 weeks and bring these readings to her upcoming appointment with her PCP on 12/03. We discussed hypertensive urgency and symptoms of hypertensive crisis. I asked her to call if BP rises similar to this weekend. Continue healthy dietary habits, regular activity. Daytime somnolence 08/18/2022 Assessment & Plan (12/03/2022 12:43 PM EDT): I suspect daytime somnolence and labile blood pressure are related to sleep apnea. Like her to be evaluated by sleep medicine. She has had an extensive work-up including labs, echocardiogram, and nuclear stress test within the last couple of years all of which have been unremarkable. Assessment & Plan (08/18/2022 5:49 PM EDT): Combination of daytime somnolence and morning headaches is concerning for possible sleep apnea. Intracranial process such as subdural hematoma is also possible. If labs and CT showed no significant abnormality, would like to have her evaluated by sleep medicine. Notalgia 08/18/2022 Assessment & Plan (11/17/2022 2:34 PM EDT): She describes this as sharp pain throughout the back. We discussed imaging and manual therapy. She defers the former and accepts a prescription for PT. Discuss further with PCP at next visit. Assessment & Plan (08/18/2022 5:50 PM EDT): Most likely this is due to deconditioning. If pain does not gradually improve, I recommend x-ray of her thoracic spine. If this is normal I will refer her to physical therapy. Right-sided chest wall pain 10/02/2021 Allergic dermatitis of upper and lower lids of b oth eyes 10/02/2021 Assessment & Plan (10/02/2021 4:04 PM EDT): She may have some dermatitis secondary to using a cleanser or possibly from her make-up. I recommend she stop Noxzema around her eyes and use moisturizer a couple times daily. If this does not help she can use some [id number]-[id number] hydrocortisone cream. If neither of these help I recommend stopping mascara and see if this helps. Eczematous dermatitis of upp er and lower eyelids of both eyes 01/14/2021 Assessment & Plan (01/14/2021 6:04 PM EDT): Avoid using mascara until symptoms resolved. Try some hydrocortisone cream a small amount on upper and lower lids before bed for a week or 2. Chronic pain of right knee 11/17/2020 Assessment & Plan (06/16/2021 9:32 AM EDT): Upcoming procedure with ortho. History of renal stone 09/19/2020 Overview (09/19/2020): Stones many in past since 1999. 4-5 trips to ER. Primary osteoarthritis involving multiple joints 01/11/2020 Assessment & Plan (10/02/2021 4:02 PM EDT): Ibuprofen has been less effective than Celebrex. I recommend she discontinue ibuprofen and use Celebrex once or twice daily as needed. Assessment & Plan (06/16/2021 9:33 AM EDT): Planned procedure with ortho. Assessment & Plan (01/11/2020 11:18 AM EDT): She can use ibuprofen as needed but she should be judicious about this to reduce the risk of toxicity. Side effects were reviewed. External hemorrhoid 07/18/2018 Assessment & Plan (07/18/2018 9:53 AM EDT): Hemorrhoid may be causing some fecal incontinence. She will treated with Preparation H and MiraLAX as needed. If it does not get better after after a week or so, she will call and I will refer her to surgery. Urethral prolapse 07/18/2018 Assessment & Plan (08/14/2018 6:16 PM EDT): I will refer the patient to Dr. Pryor at [facility] urology. Assessment & Plan (07/18/2018 9:54 AM EDT): Prolapse may be causing some urinary incontinence. I offered a referral to [employer]YING [employer] to discuss management options. Patient deferred at this point. Fecal smearing 07/18/2018 Assessment & Plan (07/18/2018 9:55 AM EDT): This may be related to the hemorrhoid. It is possible that she has a rectovaginal fistula but nothing that I was able to observe on exam. If it does not resolve with resolution of the hemorrhoid, I will refer her to surgery and [employer] for evaluation. Primary biliary cholangitis 05/08/2018 Assessment & Plan (03/17/2022 12:56 PM EST): She is asymptomatic. 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 She will follow-up with GI as scheduled later this year. Assessment & Plan (10/02/2021 4:02 PM EDT): Unfortunately treatment has been cost prohibitive and she is currently not being treated. Clinically she is doing well, she will follow-up as planned with her middle school humanities teacher to discuss treatment options Assessment & Plan (01/14/2021 6:02 PM EDT): I am concerned about potential deterioration of her condition without medication. Asked her to discuss treatment options with her middle school humanities teacher. She will make a call soon as possible. Assessment & Plan (01/11/2020 11:18 AM EDT): Clinically she doing well, continue current medication and follow-up as scheduled with GI. Assessment & Plan (01/22/2019 5:20 PM EST): Clinically she is doing well. She will follow-up as scheduled with GI to evaluate the nodularity of her liver seen on ultrasound. Assessment & Plan (05/08/2018 8:05 PM EST): Clinically the patient appears to be doing well. She will follow-up with Dr. Warner as scheduled. Primary insomnia 05/08/2018 Assessment & Plan (05/08/2018 8:06 PM EST): Patient appears to have developed some bad sleep hygiene. I suspect this is slowly t worsening over the years. I reassured her that it is quite possible to get back to a normal sleep pattern with some work. The first step process would be some self-directed cognitive behavioral therapy. He patient will read overcoming insomnia by Jorge Rutledge. If she is not able to improve her sleep after reading the book, I will refer her for cognitive behavioral therapy. Palpitations 01/03/2018 Assessment & Plan (03/20/2019 1:56 PM EST): Today's ECG is benign with a sinus rate at 71 and ectopy. Cannot exclude a septal infarct but I believe this is likely lead placement. I have given her a 30-day event monitor today and I will bring her back in a month after she is recorded 1 of these events. Assessment & Plan (01/03/2018 5:00 PM EDT): This is a somewhat unusual symptom that the rate of her symptoms is not significantly changed from her normal heart rate and the palpitations are described as very painful. Her ECG today and long rhythm strip reveals only sinus rhythm without ectopy but of course she did not have her symptoms. The resting ECG has poor precordial R wave progression but is otherwise benign tracing. I have asked her to wear a Holter monitor so we can document these events to see if there are this is an arrhythmia. She is decided to restart her medication and if the symptoms recur she will give us a call and we will place the monitor. Coronary artery disease invo lving big sandy coronary artery of big sandy heart without angina pectoris 06/29/2017 Overview (05/08/2018): by patient history 50% LAD lesion Assessment & Plan (03/17/2022 12:55 PM EST): Clinically she is doing well with no symptoms. Continue low-fat diet and regular exercise Assessment & Plan (10/02/2021 4:03 PM EDT): She has mild nonobstructive coronary disease. I think the risk of aspirin taken in conjunction with either nonsteroidals or Roberson 2 inhibitor outweighs the possible benefit so I recommend she discontinue aspirin at this time. Assessment & Plan (06/16/2021 9:30 AM EDT): No angina. Continue medical management. Assessment & Plan (01/14/2021 6:00 PM EDT): Asymptomatic and she is on the appropriate medication for secondary prevention. Continue the same. Check lipid panel Assessment & Plan (01/11/2020 11:17 AM EDT): Asymptomatic, continue current medication. Assessment & Plan (03/20/2019 1:57 PM EST): No symptoms. Assessment & Plan (01/22/2019 5:19 PM EST): Asymptomatic. She is tolerating statin daily now. Last LDL was a little bit above target but much improved and she is increase the dose since then. We will continue the same medication and I will also at a future visit. Assessment & Plan (08/14/2018 6:15 PM EDT): Asymptomatic, continue gradually trying to increase statin dose. I asked her to try to increase by 1 tablet/week. We will recheck her lipid profile in the next few weeks. The goal is right get her LDL as well as possible hopefully less than 70. If she is not able to achieve this because of medication tolerance, lower dose of statin with is higher than ideal LDL would be better than no statin at all. Assessment & Plan (05/08/2018 5:16 PM EST): The patient was unable to tolerate statin in the past. She tried multiple drugs. Although the patient has no symptoms and only mild coronary disease on her cath, I think will be prudent to retry a statin if her LDL is greater than 100.. I will try her on rosuvastatin 5 mg starting at 1 tablet weekly and then increasing the dose by 1 tablet/week each month to see if we can get some better control of her LDL. I also encouraged her to continue working on maintaining a healthier body weight. Assessment & Plan (07/01/2017 10:34 AM EDT): Nonobstructive and asymptomatic. History of aortic valve repl acement with bioprosthetic valve 06/29/2017 Overview (03/20/2019): 10/2012 BIOAVR/HTFD Assessment & Plan (03/17/2022 12:56 PM EST): Clinically she doing well. She is scheduled to have an echocardiogram in the next few months and she will follow-up with cardiology after that. Assessment & Plan (10/02/2021 4:03 PM EDT): Clinically she is doing well. Follow-up as planned with cardiology Assessment & Plan (06/16/2021 9:31 AM EDT): Valve sounds fine. Echo to monitor as indicated. Assessment & Plan (01/14/2021 6:01 PM EDT): Valve appears to be functioning well. Continue current management and follow-up as scheduled with cardiology. Valve appears to be functioning normally and I doubt this is related to her transient low blood pressure since they only seem to be associated with eating but not exertion. Assessment & Plan (01/09/2020 4:08 PM EDT): Doing well. Encouraged to remain active. Suggest repeat echocardiogram in a year to 2. She is aware of my plans to retire and will follow-up with my colleague in 6 months. Assessment & Plan (03/20/2019 1:56 PM EST): I have scheduled her for an echocardiogram. Assessment & Plan (05/08/2018 8:02 PM EST): Doing well, continue aspirin. Follow-up as scheduled with cardiology. Assessment & Plan (01/03/2018 5:02 PM EDT): Last echocardiogram I believe was 2013. She is certainly due for repeat but I do not believe it accounts for her present symptoms. Going to evaluate that first and then send her for an echocardiogram. Assessment & Plan (07/01/2017 10:34 AM EDT): Her echocardiogram done after her complaints of shortness of breath which have now improved did not reveal any issues with the valve. It has a minor gradient consistent with the fact that it's a bioprosthetic and no aortic insufficiency or change in ventricular performance was seen. Valve is now 5 years old. History of paroxysmal supraventricular tachycard ia 06/29/2017 Assessment & Plan (06/16/2021 9:31 AM EDT): No recurrence. Assessment & Plan (01/03/2018 5:00 PM EDT): No episodes of this kind and and that does not believe that her present issue Mixed hyperlipidemia 06/29/2017 Overview (10/02/2021): Unable to tolerate multiple statins Assessment & Plan (03/17/2022 12:58 PM EST): Clinically she is doing well. I will recheck her LDL. Goal is to maintain an LDL around 100. She did not tolerate statins and is not interested in trying other treatment options. I think this is reasonable considering the fact that she had nonobstructive coronary disease. Continue low-fat diet and regular aerobic exercise. Assessment & Plan (10/02/2021 4:01 PM EDT): Continue low-fat diet and 30 minutes of aerobic exercise 3 or more times per week Assessment & Plan (01/11/2020 11:18 AM EDT): She is not able to tolerate higher dose statins. Check her lipid panel. I would not recommend adding ezetimibe or a PCSK9 inhibitor with her LDL is very high. Assessment & Plan (01/09/2020 4:08 PM EDT): I have asked her to have lipids drawn relatively soon. Assessment & Plan (03/20/2019 1:57 PM EST): No recent labs. I have asked her to have a lipid profile as well as hepatic and metabolic screens done before her next visit here in about a month. Assessment & Plan (10/30/2018 1:25 PM EDT): She has not been able to tolerate daily dose of Crestor but she is tolerating it 3 to 4 days/week asked her to continue taking this 5 mg every other day and after a month to see if she can gradually start to increase the frequency that she takes medication again. Assessment & Plan (01/03/2018 5:00 PM EDT): Lipid profile has been drawn I believe at the primary's office but I have not seen the results. She is intolerant of all statins. Resolved Problems Problem Noted Date Diagnosed Date Resolved Date Close exposure to COVID-19 virus 07/31/2021 10/02/2021 Assessment & Plan (07/31/2021 1:05 PM EDT): Patient has a possible COVID-19 exposure and possible positive home test. My impression though is that she is misinterpreting the test. To be on the safe side I recommend having a PCR test done. She will go to the lab and have that done today. Dysuria 07/31/2021 10/02/2021 Assessment & Plan (07/31/2021 1:06 PM EDT): She may have a urinary tract infection and I like to get a urine specimen today. I am more suspicious that her symptoms are due to irritation from her prolapse. Unless her urine shows a significant abnormality, I would not treat her. She will follow-up as planned with her circle shear operator. Pre-operative cardiovascular examination 06/16/2021 07/31/2021 Assessment & Plan (06/16/2021 9:27 AM EDT): Regarding her preoperative risk assessment she remains minor risk factor for perioperative cardiovascular events. Knee replacement is intermediate risk surgery. I do not feel there are any contraindications to proceeding with her planned procedure. I defer medication holds to the surgeon as needed for the procedure. Gross hematuria 09/19/2020 01/14/2021 Assessment & Plan (09/19/2020 10:47 AM EDT): Symptoms seem more consistent with a renal stone rather than UTI. I will send a urine culture. Also referred her to urology because she had some aches we will start. Also obtain the results of her CT done at [facility] in June. Her renal function and electrolytes were normal a few months ago so I do not think we need to be rechecked at this time. Encourage her to drink plenty of fluids, strain her urine if she collects a stone to bring it in for analysis. Short-term memory loss 01/22/201903/17 Assessment & Plan (01/14/2021 6:02 PM EDT): We did a brief assessment of her memory in the office. I think her changes are limited to normal fluctuations. If her symptoms worsen we can evaluate things further Assessment & Plan (01/22/2019 5:20 PM EST): Most likely this is due to stress. I see nothing abnormal on her neurologic exam and the remainder of her cognitive function appears to be normal. If her symptoms progress she will let me know and we will do a further evaluation. Viral syndrome 10/30/2018 01/22/2019 Assessment & Plan (10/30/2018 1:25 PM EDT): I suspect that your pain was related to referred pain from a viral syndrome that was causing the lesions in her mouth. The lesions in her mouth have completely resolved and her pain is lessening. She will let me know if that does not continue to resolve over the course the next few days. Benign essential hypertension 07/01/2017 02/17/2022 Assessment & Plan (10/02/2021 4:01 PM EDT): Blood pressures well controlled, continue current medication Assessment & Plan (06/16/2021 9:31 AM EDT): Good control on current regimen. No changes. Assessment & Plan (01/14/2021 6:01 PM EDT): Blood pressures well controlled. I am not sure what is causing her transient hypotension, but generally her blood pressure is doing well and reluctant to make any changes unless her symptoms worsen. Assessment & Plan (01/11/2020 11:16 AM EDT): Well-controlled, continue current medication. Assessment & Plan (03/20/2019 1:57 PM EST): Well-controlled and now on no antihypertensives. Assessment & Plan (01/22/2019 5:18 PM EST): Blood pressures well controlled, continue current medication. Assessment & Plan (10/30/2018 1:24 PM EDT): Blood pressure still running low but high. She has not been able to tolerate lisinopril 5 mg daily due to headedness and hypotension. Instead of taking lisinopril only if her blood pressure is elevated, I like her to decrease the dose to 2.5 mg see if this will avoid hypotension but control her blood pressure more uniformly. The goal is to try to keep her systolic blood pressure around 120. Assessment & Plan (08/14/2018 6:16 PM EDT): Blood pressures well controlled off medication. Continue following low-salt diet and getting at least 30 minutes of aerobic exercise for more times per week. Assessment & Plan (05/08/2018 8:04 PM EST): Blood pressures currently well controlled. The volatility of her blood pressure I suspect is related to anxiety. I encouraged her to check her blood pressure when she is feeling well not when she is feeling anxious or flushed. I think she is in more danger of over treating her hypertension and becoming hypotensive having an adverse event related to her blood pressure being elevated. Assessment & Plan (07/01/2017 10:35 AM EDT): Blood pressure is well-controlled today. She continues to complain of headaches although they may have improved. They may not be related. Immunizations Immunization Administration Dates Next Due COVID-19 (Pre-01/03) Moderna Vaccine, mRNA, PF 01/23/2021,06/11/2020,05/14/2020 Influenza High-Dose Quadriva lent Preservative Free IM 01/11/2020(Deferred: Other - Provider knows of vaccine reaction patient would like to speak to him again about it before recieving.) Pneumococcal conjugate PCV13 03/21/2016 Pneumococcal polysaccharide PPSV23 03/21/2018 Tdap 10/14/2022 Family History Medical History Relation Comments Early CAD Brother 1 Early CAD Brother 2 Cancer Brother 3 Lung cancer Father Colon cancer Mother mets to brain COPD Sister 1 Diabetes mellitus Sister 1 Heart failure Sister 1 Lung cancer Sister 2 No Known Problems Son 1 No Known Problems Son 2 Relation Status Comments Brother 1 (Age 50) Brother 2 (Age 50) Brother 3 (Age 66) Father (Age 70) Mother (Age 62) Sister 1 (Age 72) Sister 2 (Age 62) Son 1 Alive Son 2 Alive Social History Tobacco Use Types Packs/Day Years Used Date Smoking Tobacco: Former Cigarettes Smokeless Tobacco: Never Tobacco Cessation:Counseling Given: Not Answered Alcohol Use Standard Drinks/Week Comments Not Currently 0 (1 standard drink = 0.6 oz pur e alcohol) rarely Education Answer Date Recorded Are you interested in more education? Not on idalia e 07/09/2022 Are you concerned about learning? Not on file 07/09/2022 No 07/09/2022 No 07/09/2022 Digital Access Answer Date Recorded No 08/06/2022 No 08/06/2022 Reliable internet access at home? Not on file 08/06/2022 Device with a working camera? Not on file Intimate Partner Violence Answer Date R ecorded Denied Basic Needs Not on file 03/17/2022 In the past 12 months have y ou been in a relationship with a person who hurts, threatens, or tries to control you? No 03/17/2022 Worried food would run out Not on file 03/17 In the past 12 months have y ou been in a relationship with a person who hurts, threatens, or tries to control you? No 03/17/2022 Comments Unknown Sex and Gender Information Value Date Recorded Sex Assigned at Not on file Legal Sex Female 10:37 PM EDT Gender Identity Not on file Sexual Orientation Not on file Occupation Industry Job Start Date Job End Date RN Not on file Not on file Not on file Last Filed Vital Signs Vital Sign Reading Time Taken Comments Blood Pressure 132/80 10/24/2024 11:43 AM EDT Pulse 80 10/24/2024 11:43 AM EDT Temperature 36.3 C (97.4 F) 04/06/2023 10:56 AM EST Respiratory Rate 18 03/17/2022 9:55 AM EST Oxygen Saturation 98% 10/24/2024 11:43 AM EDT Inhaled Oxygen Concentration - - Weight 78.9 kg (174 lb) 10/24/2024 11:43 AM EDT Height 156 cm (5' 1.42 ) 10/24/2024 11:43 AM EDT Body Mass Index 32.43 10/24/2024 11:43 AM EDT Plan of Treatment Upcoming Encounters Date Type Department Care Team (Late st Contact Info) Description 04/29/2025 12:40 PM EST Office Visit [facility] [address] [place] [address] [address] Floor, [address] [place] [phone] David Avery MD [address] [facility], [address] [place] [address] [phone] [email or web address] Health Maintenance Due Date Last Done Comments SMOKING Hx and SMOKELESS TOBACCO SCREENING 1958 HEPATITIS A VACCINES (1 of 2 - Risk 2-dose series) 1964 ZOSTER VACCINES (1 of 2) 08/20/1995 RSV VACCINE (1 - 1-dose 75+ series) 2020 DEPRESSION SCREENING 03/17/2023 03/17/2022 LIPID PANEL 07/24/2024 07/25/2023, 03/15, 04/07/2022 COVID-19 VACCINE ( season) 2024 03/26/2022, 01/23/2021, 06/11/2020, Additional history exists BLOOD PRESSURE 04/26/2025 10/24/2024 Adult Td,Tdap Booster 10/14/2032 10/14/2022 PNEUMOCOCCAL VACCINES (50+ years) Completed 03/21/2018, 03/21/2016 HEPATITIS C SCREENING Completed 01/22/2019 , 01/22/2019, 01/22/2019 OSTEOPOROSIS SCREENING INITIAL (ONE-TIME) Completed 07/26/2022 HIB VACCINES Aged Out No longer eligi ble based on patient's age to complete this topic MENINGOCOCCAL VACCINES (ACWY) Aged Out No longer eligible based on patient's age to complete this topic MENINGOCOCCAL VACCINES (B) Aged Out N o longer eligible based on patient's age to complete this topic Medical Devices Not on file Procedures Procedure Name Priority Date/Time Associated Diagnosis Comments LIPID PANEL Routine 07/25/2023 8:31 AM EDT Mixed hyperlipidemia BD DXA AXIAL (SPINE) WITH HIP Routine 07/26/2022 3:03 PM EDT Menopause HEPATITIS C ANTIBODY, QUALITATIVE Routine 01/22/2019 2:42 PM EST Screen for STD (sexually transmitted disease) from Last 3 Months or Most Recently Relevant to Health Maintenance Results * Lipid panel (07/25/2023 8:31 AM EDT) HDL 43 mg/dL [facility] Comment: Interpretation <40 mg/dL: Low HDL cholesterol (major risk factor for CHD) Greater than or equal to 60 mg/dL: High HDL cholesterol ( negative risk factor for CHD) HDL - cholesterol is affected by a number of factors, e.g. smoking, excerise, hormones, sex and age. CHOLESTEROL 156 0 - 240 mg/dL [facility] TRIGLYCERIDES 139 30 - 160 mg/dL [facility] LDL 85 50 - 129 mg/dL [facility] Comment: LDL levels in terms of risk for coronary heart disease: <100 mg/dL: Optimal 100-129 mg/dL: Near or above optimal 130-159 mg/dL: Borderline high 160-189 mg/dL: High >190 mg/dL: Very High CARDIAC RISK RATIO 3.6 3.3 - 4.4 [facility] Blood 07/25/2023 8:31 AM EDT 07/25/2023 8:32 AM EDT us David Avery MD LAB BLOOD BKR ORDERABLES Azalia victor Result [facility] [address] [place] [address] * BD DXA AXIAL (SPINE) WITH HIP (07/26/2022 3:03 PM EDT) Anatomical Region Laterality Modality Bone Density Bone Density 07/30/2022 10:2 5 AM EDT Impressions 07/30/2022 11:02 AM EDT Bone mineral density consistent with osteopenia. Narrative 07/30/2022 11:02 AM EDT This is a 76-year-old female presenting for screening exam. No prior studies for comparison. Evaluation of the lumbar spine and right hip is obtained and appears technically adequate. The lumbar spine from L1 through L4 discloses a total bone mineral density of 1.061 g/cm2 with a T-score of 0.1. This is in the normal range. The right hip (total) has a total bone mineral density of 0.678 g/cm2 with a T-score of -2.2. Z score -0.3. This is in the osteopenia range. The right hip (neck) has a total bone mineral density of 0.610 g/cm2 with a T- score of -2.2. Z score 0.0. Procedure Note Robbie King MD - 07/30/2022 This is a 76-year-old female presenting for screening exam. No prior studies for comparison. Evaluation of the lumbar spine and right hip is obtained and appearstechnically adequate. The lumbar spine from L1 through L4 discloses a total bone mineral densityof 1.061 g/cm2 with a T-score of 0.1. This is in the normal range. The right hip (total) has a total bone mineral density of 0.678 g/ag5mqhp a T- score of -2.2. Z score -0.3. This is in the osteopenia range. The right hip (neck) has a total bone mineral density of 0.610 g/cm2 witha T- score of -2.2. Z score 0.0. IMPRESSION: Bone mineral density consistent with osteopenia. us Surinder JONES BD BONE DENSITY DEXA F inal Result * Hepatitis C antibody, qualitative (01/22/2019 2:42 PM EST) HCV NON-REACTIV E NON-REACTI VE [facility] Blood 01/22/2019 2:42 PM EST 01/22/2019 2:46 PM EST us Surinder Frye MD LAB BLOOD BKR ORDERABLES F inal Result [address] [address] from Last 3 Months or Most Recently Relevant to Health Maintenance Insurance MEDICARE PART A & B Member Subscriber Plan / Payer ( fective 2010-Present) Name:Cleopatra Davis Member ID:[id number] Relation to Subscriber:Self Name:Cleopatra Davis Subscriber ID:[id number] Payer ID:[id number] Group ID:Not on file Type:Medicare Address: [facility] [employer] [facility] [address] [place] [address] [employer] MEDEX SUPPLEMENT [facility] Address: [facility] [id number] [place] [address] MEDICARE PART A & B [employer] MEDEX SUPPLEMENT MEDICARE PART A & B [employer] MEDEX SUPPLEMENT MEDICARE PART A & B [employer] MEDEX SUPPLEMENT MEDICARE PART A & B [employer] MEDEX SUPPLEMENT MEDICARE PART A & B [employer] MEDEX SUPPLEMENT MEDICARE PART A & B [employer] MEDEX SUPPLEMENT MEDICARE PART A & B [employer] MEDEX SUPPLEMENT MEDICARE PART A & B [employer]EX SUPPLEMENT Care Teams Line Controller Relationship Specialty Start Date End Date Georgia Lopez NP [address] [place] [address] PCP - General Nurse Practitioner 07/08/23 Alison Warner MD [address] [address] Gastroenterology 05/08/18 Roshan Terry MD [address] [address] [email or web address] Cardiology 05/08/18 Additional Source Comments The information contained in this document represents components of the legal health record. It is not the complete legal health record.[facility]
--- OUTSIDE RECORDS SUMMARY | 2025-02-21 22:09 | XMS_ITS | Encounter Summary ---
Author Organization [facility] Address [address] [place] [address] Phone Care Team Providers Care Journeyman Welder Name Role Phone Surinder Frye MD Primary Care Provider [phone] Alison Warenr MD Unavailable [phone] Roshan Terry MD Unavailable [phone] Surinder Frye MD Unavailable Georgia Lopez NP Primary Care Provider [phone] Encounter Details Date Type Department Care Team (Late st Contact Info) Description 08/10/2022 Procedure Pass Echo Lab [place] [place], [place] [id number] Social History Tobacco Use Types Packs/Day Years [...] Description 04/29/2025 12:40 PM EST Office Visit [facility] [address] [place] [address] [address]rd Floor, [address] [place] [address] David Avery MD [address] [place] [address], [address] [address] [email or web address] documented as of this encounter Visit Diagnoses Not on filedocumented in this encounter Additional Health Concerns Assessment Noted Time PHQ-2 Depression Total Score: 0 03/17/19 23 9:46 AM EST documented as of this encounter Care Teams Journeyman Welder Relationship Specialty Start Date End Date Surinder Frye MD [address] [place] [address], [address] [place] [address] PCP - General Internal Medicine 05/08/18 07/07/23 Georgia Lopez NP [address] [place] [address] [facility] [address] [place] [address] PCP - General Nurse Practitioner 07/08/23 Alison Warner MD [address] [place] [address] Gastroenterology 05/08/18 Roshan Terry MD [address] [address] Cardiology 05/08/18 Surinder Frye MD [address] [place] [address], [address] [place] [address] [email or web address] Insurance Assigned Provider 06/18/23 03/19/24 documented as of this encounter Additional Source Comments The information contained in this document represents components of the legal health record. It is not the complete legal health record.[facility]
--- OUTSIDE RECORDS SUMMARY | 2025-02-21 22:09 | XMS_ITS | Clinical Summary ---
Author Organization [facility] Address [address] [place] [address] Care Team Providers Care Power Ballast Machine Operator Name Role Phone Unavailable Primary Care Provider Unavailabl e Social History Tobacco Use Types Packs/Day Years Used Date Smoking Tobacco: Never Assessed Comments Unknown Sex and Gender Information Value Date Recorded Sex Assigned at Not on file Legal Sex Female 12:44 PM EDT Gender Identity Not on file Sexual Orientation Not on file Plan of Treatment Health Maintenance Due Date Last Done Comments Advance Care Planning 1945 Hepatitis C Virus Screening 1945 DTaP/Tdap/Td Vaccines (1 - Tdap) 1964 Pneumococcal Vaccines 50+ (1 of 1 - PCV) 08/20/1995 Zoster (Shingles) Vaccine (1 of 2) 08/20/1995 RSV Vaccine 50 years and old er and Patients (1 - 1-dose 75+ series) 2020 COVID-19 Vaccine ( - 2024-2 6 season) 2024 Hepatitis B Vaccines Aged Out No long er eligible based on patient's age to complete this topic
--- OUTSIDE RECORDS SUMMARY | 2025-02-21 22:09 | XMS_ITS | Encounter Summary ---
Author Organization [facility] Address [address] [place] [address] Phone Care Team Providers Care Property Claims Manager Name Role Phone Alison Warner MD Unavailable [phone] Roshan Terry MD Unavailable [phone] Georgia Lopez NP Primary Care Provider [phone] Encounter Details Date Type Department Care Team (Late st Contact Info) Description 04/26/2024 Procedure Pass Echo Lab [facility] [address] [place] [address] Social History Tobacco Use Types Packs/Day Years [...] Description 04/29/2025 12:40 PM EST Office Visit [facility] [address] [place] [address] [address] Floor, [address] [place] [address] David Avery MD 22 [facility], [address] [address] [email or web address] documented as of this encounter Visit Diagnoses Not on filedocumented in this encounter Additional Health Concerns Assessment Noted Time PHQ-2 Depression Total Score: 0 03/17/19 23 9:46 AM EST documented as of this encounter Care Teams Property Claims Manager Relationship Specialty Start Date End Date Georgia Lopez NP [address] [place] [address] PCP - General Nurse Practitioner 07/08/23 Alison Warner MD [address] [address] Gastroenterology 05/08/18 oRshan Terry MD [address] [address] [email or web address] Cardiology 05/08/18 documented as of this encounter Additional Source Comments The information contained in this document represents components of the legal health record. It is not the complete legal health record.[facility]
--- OUTSIDE RECORDS SUMMARY | 2025-02-21 22:09 | XMS_ITS | Encounter Summary ---
Author Organization [facility] Address [address] [place] [address] Phone Care Team Providers Care Food Preparation Worker Name Role Phone Surinder Frye MD Primary Care Provider [phone] Alison Warner MD Unavailable [phone] Roshan Terry MD Unavailable [phone] Surinder Frye MD Unavailable Georgia Lopez NP Primary Care Provider Encounter Details Date Type Department Care Team (Late st Contact Info) Description 07/08/2020 Procedure Pass Echo Lab [place] [place] [address] Social History Tobacco Use Types Packs/Day Years [...] Description 04/29/2025 12:40 PM EST Office Visit [facility] [address], [address] [place], [place] [id number] Daivd Avery MD [address] [facility], [address] [place] [address] [email or web address] documented as [...] Noted Time PHQ-2 Depression Total Score: 0 01/15/20 21 2:04 PM EDT documented as of this encounter Care Teams Food Preparation Worker Relationship Specialty Start Date End Date Surinder Frye MD [address] [place] [address], [address] [place] [address] [email or web address] PCP - General Internal Medicine 05/08/18 07/07/23 Georgia Lopez NP [address] [place] [address] PCP - General Nurse Practitioner 07/08/23 Alison Warner MD [address] [address] Gastroenterology 05/08/18 Roshan Terry MD [address] [address] Cardiology 05/08/18 Surinder Frye MD [address] [place] [address], [address] [place] [address] [email or web address] Insurance Assigned Provider 06/18/23 03/19/24 documented as of this encounter Additional Source Comments The information contained in this document represents components of the legal health record. It is not the complete legal health record.[facility]
--- OUTSIDE RECORDS SUMMARY | 2025-02-21 22:09 | XMS_ITS | Encounter Summary ---
Author Organization [facility] Address [address] [place] [address] Phone Care Team Providers Care Returned Case Inspector Name Role Phone Surinder Frye MD Primary Care Provider [phone] Alison Warner MD Unavailable [phone] Roshan Terry MD Unavailable [phone] Surinder Frye MD Unavailable Georgia Lopez NP Primary Care Provider [phone] Encounter Details Date Type Department Care Team (Late st Contact Info) Description 08/18/2022 Procedure Pass [facility], Ct Scan - [address] [address] Social History Tobacco Use Types Packs/Day Years [...] Description 04/29/2025 12:40 PM EST Office Visit [facility] [address] [place] [address] [address]rd Floor, [address] [place] [address] David Avery MD [address] [place] [address], [address] [place] [address] [email or web address] documented as of this encounter Visit Diagnoses Not on filedocumented in this encounter Additional Health Concerns Assessment Noted Time PHQ-2 Depression Total Score: 0 03/17/19 23 9:46 AM EST documented as of this encounter Care Teams Returned Case Inspector Relationship Specialty Start Date End Date Surinder Frye MD [address] [place] [address], [address] [place] [address] PCP - General Internal Medicine 05/08/18 07/07/23 Georgia Lopez NP [address] [place] [address] Dr [address] [place] [address] PCP - General Nurse Practitioner 07/08/23 Alison Warner MD [address] [place] [address] Gastroenterology 05/08/18 Roshan Terry MD [address] [place] [address] [email or web address] 05/08/18 Surinder Frye MD [address] [place] [address], [address] [place] [address] [email or web address] Insurance Assigned Provider 06/18/23 03/19/24 documented as of this encounter Additional Source Comments The information contained in this document represents components of the legal health record. It is not the complete legal health record.[facility]
[2025-02-21 22:30] VITALS: BP 135/85; PULSE 93; RESP 14; TEMP 36.8; O2SAT 94
== END 2025-02-21 22:31 | disposition home or self-care (01) ==
PROVIDERS: Physician Assistant Medical; Emergency Provider Emergency Medicine; PCP Nurse Practitioner Family
DX: N13.2 Hydronephrosis with renal and ureteral calculous obstruction (principal); R10.32 Left lower quadrant pain; R11.2 Nausea with vomiting, unspecified; R15.9 Full incontinence of feces; Z79.899 Other long term (current) drug therapy
CPT/HCPCS: 36415; 74177; 80048; 80076; 81001; 83690; 83735; 84484; 85025; 87086; 96361; 96365; 96375; 99285; J0696; J1885; J2270; J7120; Q9967

== ENCOUNTER → 2025-02-21 14:41 | Outpatient (BNV) | payer MEDICARE, SELFPAY | PROVIDERS: Emergency Provider Emergency Medicine; PCP Nurse Practitioner Family; Visit Provider Specialist | DX: K59.00 Constipation, unspecified (principal); N13.2 Hydronephrosis with renal and ureteral calculous obstruction | CPT/HCPCS: 74177 ==